=== PATIENT | female | born 1950 | race Caucasian/White ===

== ENCOUNTER 2018-02-25 07:36 | Day surgery (SDC) | payer OTHER, SELFPAY ==
--- NOTE | 2018-02-25 | PATH_ITS ---
[facility] Accession Number: [id number] . 01 Material submitted: . PART A: CECAL POLYP PART B: RIGHT COLON POLYP AJACENT TO CECUM . 02 Diagnosis: A. Cecum, Polyp, Biopsy: Tubular adenoma. . B. Right Colon, Polyp Adjacent To Cecum, Biopsy: Tubular adenoma. I/02/26/2018 . 02 Electronically signed: . Denise Galeas MD, Pathologist NPI- [id number] . 01 Gross description: . Received two formalin-filled containers both labeled with the patient's name. . A. In a container labeled cecal polyp are multiple less than 0.1 to 0.6 cm portions of tissue and/or debris. Filtered, wrapped and entirely submitted in cassette A. B. In a container labeled right colon polyp adjacent to cecum, the specimen consists of a 0.5 cm portion of tissue. Entirely submitted in cassette B. ([facility] [place]:[id number]) /[facility] . 02 Pathologist provided ICD-10: D12.0, D12.6 . 02 CPT . 520854, 261846 Specimen Comment: A duplicate report has been generated due to demographic updates. Performed at: 01 [facility] [address], [place], [place] [id number] MD Mark Rodriguez MD Phone: [phone] Performed at: 02 [facility] [address] [place], [place] [id number] MD Denise Galeas MD Phone: [phone]
[2018-02-25 07:57] VITALS: BP 136/88; PULSE 68; RESP 16; TEMP 36.5; O2SAT 94; BMI 39.4
[2018-02-25] MEDS: SODIUM CHLORIDE 0.9% 1,000 ML 200 ML IV (08:18)
--- NOTE | 2018-02-25 08:37 | PM.HP.1 ---
History of Present Illness Date Patient Seen: 02/25/18 Time Patient Seen: 08:37 Chief complaint: 21358 SCREENING COLONOSCOPY Narrative: 67-year-old female who presents for colorectal screening. It has actually been 15 years since her last examination. She reports that that study was normal at the time. On further history today she denies any recent gastrointestinal symptoms. No nausea, vomiting, loss of appetite, unexplained weight loss, abdominal pain, change in bowel habits, diarrhea, constipation, melena, hematochezia, or bright red blood per rectum. Patient History Medical History Depression (Acute) Gastroesophageal reflux disease (Acute) Hypertension (Acute) Obesity (Acute) Seasonal allergies (Acute) Surgical History History of back surgery (Acute) History of section (Acute) History of cholecystectomy (Acute) History of colonoscopy (Acute) History of excision of pilonidal cyst (Acute) History of oophorectomy (Acute) History of tonsillectomy (Acute) History of total knee replacement (Acute) Family & Social History Family History: Reviewed 02/25/18 by Fabián Berry MD Social History: household members spouse Meds Home Medications Medication Instructions Recorded Confirmed Type acetaminophen [Tylenol 8 Hour] 650 mg PO Q8H PRN 02/25/18 02/25/18 History fluoxetine 20 mg PO DAILY 02/25/18 02/25/18 History fluticasone [Flonase Allergy 2 spray INTRANASAL DAILY 02/25/18 02/25/18 History Relief] loratadine 10 mg PO DAILY PRN 02/25/18 02/25/18 History metoprolol succinate 25 mg PO BID 02/25/18 02/25/18 History multivitamin 1 cap PO QAM 02/25/18 02/25/18 History omeprazole 20 mg PO BID 02/25/18 02/25/18 History Allergies Allergy/AdvReac Type Severity Reaction Status Date / Time aspirin [From Percodan] Allergy Severe Throat Verified 02/25/18 08:05 closure codeine Allergy Severe Throat Verified 02/25/18 08:05 closure ketoconazole [From Nizoral] Allergy Severe Throat Verified 02/25/18 08:05 closure meperidine [From Demerol] Allergy Severe Throat Verified 02/25/18 08:05 closure oxycodone [From Percodan] Allergy Severe Throat Verified 02/25/18 08:05 closure Penicillins Allergy Severe Throat Verified 02/25/18 08:05 closure prochlorperazine Allergy Severe Throat Verified 02/25/18 08:05 [From Compazine] closure propoxyphene [From Darvon] Allergy Severe Throat Verified 02/25/18 08:05 closure Review of Systems Review of Systems All systems reviewed & are unremarkable except as noted in HPI and below Exam Vital Signs (past 8 hours): - 02/25/18 07:57 Temperature 97.7 F Pulse Rate 68 Respiratory Rate 16 Blood Pressure 136/88 Pulse Oximetry 94 Oxygen Delivery Method Room Air Narrative Exam Narrative: Well-nourished well-developed obese female lying comfortably in bed in no acute distress. Alert oriented x3. is at the bedside throughout my entire visit Sclera nonicteric Regular rate and rhythm without murmurs No crackles or wheezes bilaterally Abdomen is obese but soft and nondistended. Nontender. No masses. Extremities show no clubbing or cyanosis Objective Labs Labs: No recent laboratory or radiographic studies for review Assessment & Plan Plan: Assessment/Plan Narrative: 67-year-old female requiring colorectal screening since it has been 15 years from prior examination. Colonoscopy is currently recommended. Technical details of the procedure were discussed. Risks, benefits, alternatives were explained. Risks including but not limited to sedation, aspiration, bleeding, pain, missed lesion, incomplete examination, need for further radiographic studies, colonic perforation, need for major abdominal surgery, and all attendant risks of major surgery were explained in detail. All questions were answered to her satisfaction, and she voiced understanding. Consent was placed on the chart. We will proceed as above.
--- NOTE | 2018-02-25 08:41 | PM.PREOP ---
Pre-operative Note Interval Note Pre-op Check: Yes History & Physical Reviewed by Physician, Yes Exam Performed and Yes History & Physical exam performed today by Physician Changes: No H&P completed within 30 days and has changed as indicated here:: Patient seen and examined today. History and physical examination documented and placed on the chart. Proceed with colonoscopy today as planned. ASA Class (for procedural sedation): II
[2018-02-25] MEDS: MIDAZOLAM 5 MG/5 ML VIAL IV (09:04)
[2018-02-25] MEDS: fentaNYL 250 MCG/5 ML INJ IV (09:05)
--- NOTE | 2018-02-25 09:09 | PM.OP.ENDO ---
Operative Date/Time/Diagnoses Date of procedure: 02/25/18 Time of procedure: 09:09 Pre-op diagnosis: Colorectal screening Post-op diagnosis: other (Diverticulosis and colon polyps) Procedure & Clinicians Study performed: 1. Sedation per surgeon 2. Colonoscopy with hot snare polypectomy and cold forceps polypectomy Same procedure as scheduled: Yes Indications: 67-year-old female who presented for colorectal screening. It has been 15 years since her last endoscopy. Colonoscopy is currently recommended. Surgeon: Fabián Berry Procedure Notes SCOAP/Timeout: Yes Procedure in detail: After obtaining informed consent, the patient was brought to the GI suite and placed in the left lateral decubitus position on the examination table. After placement of appropriate monitors, the patient was given incremental doses of Versed and Fentanyl until an appropriate level of sedation was achieved. A time out was held per SCOAP protocol. A digital rectal examination was performed and did not reveal any masses or obstructing lesions. The colonoscope was gently passed into the patient's anus and the entire colon navigated to the level of the cecum with minimal difficulty. Terminal ileum was intubated and noted to be grossly normal. Once in the cecum, the scope was withdrawn being sure to go before and beyond all mucosal folds and prominences and get an excellent examination. The findings are noted above. At the level of the rectal vault, the scope was retroflexed and the internal anal canal was examined. The scope was straightened and air aspirated from the colon. The instrument was removed from the patient's body and the procedure was concluded. The patient was allowed to awaken from sedation without difficulty and taken to the post-anesthesia care unit in good condition. Scope withdrawal time: 17:48 min Sedation minutes: 24 Findings: diverticulosis and polyp Specimen(s): other (1. Cecal polyp 2. Right colon polyp adjacent the cecum) Complications: none Recommendations: High fiber diet and Other recommendation (Colonoscopy in 2 years pending biopsy results) Plan for aftercare: 1. Discharge to home Follow up: as needed Disposition: PACU
[2018-02-25 09:14] VITALS: BP 120/83; PULSE 68; RESP 16; TEMP 36.2; O2SAT 95
== END 2018-02-25 09:40 | disposition home or self-care (01) ==
PROVIDERS: Visit Provider Surgery
PROC: 0DJD8ZZ Inspection of Lower Intestinal Tract, Via Natural or Artificial Opening Endoscopic (ICD-10-PCS; CPT 45378; principal; 2018-02-25 08:45)
DX: Z12.11 Encounter for screening for malignant neoplasm of colon (principal); K57.30 Diverticulosis of large intestine without perforation or abscess without bleeding; I10 Essential (primary) hypertension; E66.9 Obesity, unspecified; F33.41 Major depressive disorder, recurrent, in partial remission; D12.0 Benign neoplasm of cecum; D12.6 Benign neoplasm of colon, unspecified
CPT/HCPCS: 45385; 45380; 99152; 99153; J2250; J3010